=== PATIENT | female | born 1970 | race Caucasian/White ===

== ENCOUNTER 2020-01-05 08:42 | Outpatient (CLI) | payer MEDICARE, MEDICAID, SELFPAY ==
--- NOTE | ~2020-01-05 | MM_ITS ---
EXAMINATION: MM screening mammo BI HISTORY: Screening mammogram TECHNIQUE: Full field digital craniocaudal and mediolateral oblique views of both breasts were obtain ed. CAD analysis was submitted and interpreted. COMPARISON: 07/17/2018, 07/14/2017, 06/12/2016 BREAST PARENCHYMAL COMPOSITION: There are scattered areas of fibroglandular density. FINDINGS: Right breast: There is no evidence of suspicious mass, calcification, or architectural distortion to suggest malignancy. There has been no suspicious interval change. Left breast: A 7 mm mass is present in the subareolar aspect of the breast. Scattered benign-appearin g calcifications are present. IMPRESSION: 1. Left breast mass. 2. Additional mammographic views and possible breast ultrasound are recommended. BI-RADS Category 0: Incomplete: Needs additional imaging evaluation. Reviewed, dictated and finalized at location A. 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 Left breast mass. 2. Additional mammographic views and possible breast ultrasound are recommended . BI-RADS Category 0: Incomplete: Needs additional imaging evaluation.
== END 2020-01-05 08:43 | disposition home or self-care (01) ==
LOC: ANHIMG 08:46
PROVIDERS: PCP Internal Medicine; Visit Provider Internal Medicine
DX: Z12.31 Encounter for screening mammogram for malignant neoplasm of breast (principal); R92.8 Other abnormal and inconclusive findings on diagnostic imaging of breast
CPT/HCPCS: 77067

== ENCOUNTER 2020-01-28 12:56 | Outpatient (CLI) | payer MEDICARE, MEDICAID, SELFPAY ==
--- NOTE | ~2020-01-28 | MMUS_ITS ---
EXAMINATION: MM diagnostic mammo unilat LT, US breast LT limited HISTORY: 7 mm mass reported in inferior subareolar left breast on 01/05/2020 screening mammogram TECHNIQUE: Additional 3-D tomosynthesis images of the left breast were performed and synthetic 2-D im ages were generated. CAD analysis was submitted and interpreted. High resolution targeted left subare olar breast ultrasound was performed. COMPARISON: 01/05/2020, 07/17/2018, 07/14/2017 bilateral digital screening mammogram examinations FINDINGS: MAMMOGRAPHIC FINDINGS: An approximately 6 mm circumscribed opacity is noted in the inferior subareolar area of the left [address]. ULTRASOUND: There is an approximately 4.3 x 2.6 x 3.4 mm mildly complicated cyst in the 6:00 subareolar area. No suspicious shadowing or internal vascularity is noted. IMPRESSION: 1. Probably benign cyst in the 6:00 subareolar area of left breast 2. Targeted follow-up left subareolar 6:00 breast ultrasound examination is recommended 6 month. BI-RADS category 3, probably benign findings. Reviewed, dictated and finalized at location A. [employer] IMPRESSION: 1. Probably benign cyst in the 6:00 subareolar area of left breast 2. Targeted follow-up left subareolar 6:00 breast ultrasound examination is rec ommended 6 month. BI-RADS category 3, probably benign findings.
== END 2020-01-28 12:57 | disposition home or self-care (01) ==
LOC: ANHIMG 12:58
PROVIDERS: PCP Internal Medicine; Visit Provider Internal Medicine
DX: N60.02 Solitary cyst of left breast (principal)
CPT/HCPCS: 76642; 77065

== ENCOUNTER 2020-08-18 15:21 | Outpatient (CLI) | payer MEDICARE, MEDICAID, SELFPAY ==
--- NOTE | ~2020-08-18 | US_ITS ---
US breast LT limited DATE: 08/18/2020 15:50 INDICATION: Six-month follow-up of 6:00 subareolar right breast lesion TECHNIQUE: High-resolution real-time and color flow imaging targeted to 6:00 subareolar area COMPARISON: 01/28/2020 limited left breast ultrasound and diagnostic left mammogram FINDINGS: There is an irregular mildly serrated heterogeneous complex mass at 6:00 subareolar area me asuring up to 4.2 x 5.6 x 6.3 mm, increased compared to 4.3 x 2.6 x 3.4 mm dimension on 01/2020. Giv en the irregular margins and the increased size since 02/27/2019, ultrasound-guided biopsy is recommend ed. IMPRESSION: BI-RADS Category 4: Suspicious abnormality; biopsy should be considered Recommendation: Ultrasound-guided biopsy of left breast subareolar 6:[address] Bedoya telephoned the report and ultrasound guided biopsy recommendation to ROSANGELA Puente at [phone] on August 18, 2020 at 1557 hours. Reviewed, dictated and finalized at Location A. Reviewed, dictated and finalized at location A. IMPRESSION: BI-RADS Category 4: Suspicious abnormality; biopsy should be consid ered Recommendation: Ultrasound-guided biopsy of left breast subareolar 6:[address] Bedoya telephoned the report and ultrasound guided biopsy recommendation to Jacqueline Puente at [phone] on August 18, 2020 at 1557 hours.
== END 2020-08-18 15:22 | disposition home or self-care (01) ==
PROVIDERS: PCP Internal Medicine; Visit Provider Internal Medicine
DX: R92.8 Other abnormal and inconclusive findings on diagnostic imaging of breast (principal)
CPT/HCPCS: 76642

== ENCOUNTER 2020-08-29 10:04 | Outpatient (CLI) | payer MEDICARE, MEDICAID, SELFPAY ==
--- NOTE | ~2020-08-29 | MMUS_ITS ---
EXAMINATION: US breast biopsy LT w image, MM post biopsy invasive LT DATE: 08/29/2020 11:46 (accession [id number]), 08/29/2020 11:47 (accession [id number]) INDICATION: Indeterminate subareolar mass at the 6:00 location of the left breast Ultrasound-guided c ore biopsy is requested to evaluate for malignancy. TECHNIQUE AND FINDINGS: The risks and potential benefits of the procedure were discussed with the patient including bleeding, infection, and nondiagnostic specimen. A time out was performed. The skin of the left breast was pre pared and draped in usual sterile fashion. 1% lidocaine was used for superficial anesthesia. 1% lidoc randy with epinephrine was used for deep anesthesia. A vacuum-assisted biopsy gun needle was advanced through to the outer edge of the region of interest from a lateral approach utilizing sonographic guidance. A total of three tissue core samples were obt ained through the lesion. A tissue marker clip was then placed at the biopsy site. Hemostasis was ach ieved. A sterile bandage was applied. The patient tolerated procedure well and there was no evidence of immediate complication. The patient was given verbal instructions to return to the Emergency Department in the event of severe breast pa in or rapid breast enlargement. A two view left breast mammogram was obtained to document tissue maile er clip placement. IMPRESSION: 1. Successful ultrasound-guided vacuum-assisted biopsy of left breast mass with tissue marker placeme nt. Reviewed, dictated and finalized at location A. IMPRESSION: 1. Successful ultrasound-guided vacuum-assisted biopsy of left breast mass with tissue marker placement.
== END 2020-08-29 10:05 | disposition home or self-care (01) ==
PROVIDERS: PCP Internal Medicine
DX: N63.20 Unspecified lump in the left breast, unspecified quadrant (principal); R92.8 Other abnormal and inconclusive findings on diagnostic imaging of breast
CPT/HCPCS: 19083; 88305; A4648

== ENCOUNTER 2021-06-07 09:27 | Outpatient (CLI) | payer MEDICARE, MEDICAID, SELFPAY ==
--- NOTE | ~2021-06-07 | XR_ITS ---
EXAMINATION: XR shunt series INDICATION: Possible shunt catheter breakdown TECHNIQUE: AP and lateral views of the skull and AP views of the chest and abdomen are obtained. COMPARISON: None available FINDINGS: There appears to be a retained shunt catheter entering anteriorly through the right frontal lobe. A second shunt catheter enters posteriorly through the right parietal bone and continues throu gh the right neck anteriorly in the right chest wall. The catheter tubing appears to be discontinuous in the right lower chest wall. There also appears to be a short segment of retained shunt catheter t ubing in the medial aspect of the right anterior chest wall. The distal thoracic shunt catheter tubin g and tubing within the abdomen appears to be contiguous and intact. The lungs are free of acute opac ities. The cardiomediastinal silhouette is normal. There is no pleural effusion or pneumothorax. The bowel gas pattern is normal. IMPRESSION: 1. Apparent discontinuity of the shunt catheter tubing in the right lower thorax Reviewed, dictated and finalized at location A. IMPRESSION: 1. Apparent discontinuity of the shunt catheter tubing in the right lower thora x
== END 2021-06-07 09:28 | disposition home or self-care (01) ==
LOC: ANHIMG 09:42
PROVIDERS: PCP Internal Medicine; Visit Provider Psychiatry & Neurology Neurology
DX: T85.618A Breakdown (mechanical) of other specified internal prosthetic devices, implants and grafts, initial encounter (principal)
CPT/HCPCS: 70250; 71045; 74018

== ENCOUNTER 2021-06-22 13:24 | Outpatient (CLI) | payer MEDICARE, MEDICAID, SELFPAY ==
--- NOTE | ~2021-06-22 | CT_ITS ---
EXAMINATION: CT thoracic spine wo con DATE: 06/22/2021 13:47 INDICATION: Dorsalgia. TECHNIQUE: Computed tomography (CT) of the thoracic spine was performed without intravenous contrast. Automated exposure control and iterative reconstruction technique were employed. The dose-length pro duct was 486.10 mGy-cm. COMPARISON: None FINDINGS: There is a moderate-sized sliding hiatal hernia. There is 11 degrees levoscoliosis of thora cic spine. Vertebral body heights are normal. There are sclerotic lesions in T2, T4, and T10 vertebra l bodies. There is mildly decreased disc height from T2-T3 through T8-T9. 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 On the right, there is mild neural foraminal stenosis at T5-T6 and T6-T7. No central canal stenosis. IMPRESSION: 1. Sclerotic lesions in T2, T4, and T10 vertebral bodies, which may be benign bone islands, hemangiom as, or metastatic disease. Bone scan is recommended. 2. Mild thoracic spondylosis. 3. Thoracic levoscoliosis. 4. Moderate-sized sliding hiatal hernia. Reviewed, dictated and finalized at location B. IMPRESSION: 1. Sclerotic lesions in T2, T4, and T10 vertebral bodies, which may be benign b one islands, hemangiomas, or metastatic disease. Bone scan is recommended. 2. Mild thoracic spondylosis. 3. Thoracic levoscoliosis. 4. Moderate-sized sliding hiatal hernia.
== END 2021-06-22 13:25 | disposition home or self-care (01) ==
PROVIDERS: PCP Internal Medicine; Visit Provider Internal Medicine
DX: R92.8 Other abnormal and inconclusive findings on diagnostic imaging of breast (principal); M47.894 Other spondylosis, thoracic region; K44.9 Diaphragmatic hernia without obstruction or gangrene
CPT/HCPCS: 72128

== ENCOUNTER 2021-06-28 12:10 | Outpatient (CLI) | payer MEDICARE, MEDICAID, SELFPAY ==
--- NOTE | ~2021-06-28 | MMUS_ITS ---
EXAMINATION: MM diagnostic maddie RT w ava, US breast RT complete HISTORY: Reported abnormality of right breast on CT examination performed at outside institution TECHNIQUE: Full field and spot ML, MLO and CC and rotated lateral CC 3-D tomosynthesis images of the right breast were performed and synthetic 2-D images were generated. CAD analysis was submitted and i nterpreted. High resolution complete right breast ultrasound including all 4 quadrants and subareolar area was performed. COMPARISON: 01/05/2020, 07/13/2018, 07/14/2017 bilateral screening mammogram examinations BREAST PARENCHYMAL COMPOSITION: There are scattered areas of fibroglandular density. FINDINGS: MAMMOGRAPHIC FINDINGS: There are 2 biopsy markers on the right. History of prior benign right breast biopsies. Scattered benign calcifications. No suspicious new or enlarging mass is detected. No interval architectural distortion, skin thickenin g or retraction. ULTRASOUND: At 10:00 6 cm from the nipple there is a parallel circumscribed septated cyst measuring 6.3 x 2.6 x 3 .2 mm. There is no suspicious shadowing. No suspicious mass or shadowing is noted elsewhere in the right breast. IMPRESSION: 1. Benign findings 2. Routine mammographic screening is recommended BI-RADS Category 2: Benign Reviewed, dictated and finalized at location A. IMPRESSION: 1. Benign findings 2. Routine mammographic screening is recommended BI-RADS Category 2: Benign
== END 2021-06-28 12:11 | disposition home or self-care (01) ==
PROVIDERS: PCP Internal Medicine; Visit Provider Internal Medicine
DX: R92.8 Other abnormal and inconclusive findings on diagnostic imaging of breast (principal); M54.9 Dorsalgia, unspecified
CPT/HCPCS: 76641; 77061; 77065; G0279

== ENCOUNTER 2021-07-05 08:53 | Outpatient (CLI) | payer MEDICARE, MEDICAID, SELFPAY ==
--- NOTE | ~2021-07-05 | NM_ITS ---
EXAMINATION: NM bone scan whole body DATE: 07/05/2021 13:19 INDICATION: Abnormal findings on diagnostic CT imaging TECHNIQUE: 86.9 mCi Tc-99m HDP was administered intravenously. Delayed whole-body scintigrams were o btained. COMPARISON: Thoracic spine CT dated 06/22/2021 FINDINGS: Likely degenerative joint centered uptake at the bilateral elbows, knees, feet and ankles. Increased uptake at the left and right sides of the lower lumbar spine likely related to either facet osteoarth ritis with bilateral pars interarticularis defects. No abnormal uptake associated with the previous n oted sclerotic lesions at T2, T4 and T10, most likely bone islands. No other suspicious bone lesions identified. IMPRESSION: 1. No suspicious bone lesions identified. Specifically no uptake at the previously noted sclerotic le sions in the thoracic spine which most likely represent bone islands. Reviewed, dictated and finalized at location A. IMPRESSION: 1. No suspicious bone lesions identified. Specifically no uptake at the previou sly noted sclerotic lesions in the thoracic spine which most likely represent b one islands.
== END 2021-07-05 08:54 | disposition home or self-care (01) ==
PROVIDERS: PCP Internal Medicine; Visit Provider Internal Medicine
DX: R93.89 Abnormal findings on diagnostic imaging of other specified body structures (principal)
CPT/HCPCS: 78306; A9561

== ENCOUNTER 2021-07-12 07:50 | Outpatient (CLI) | payer MEDICARE, MEDICAID, SELFPAY ==
--- NOTE | ~2021-07-12 | MM_ITS ---
EXAMINATION: MM screening mammo unilat LT HISTORY: Screening left mammogram, recent negative right diagnostic mammogram TECHNIQUE: Craniocaudal and mediolateral oblique 3-D tomosynthesis images were obtained and synthetic 2-D images were generated. CAD analysis was submitted and interpreted. COMPARISON: 01/28/2020, 01/05/2020, 07/17/2018, 07/14/2017 BREAST PARENCHYMAL COMPOSITION: There are scattered areas of fibroglandular density. FINDINGS: Scattered benign-appearing calcifications are present. There is no suspicious mass, calcifi cation, or architectural distortion to suggest malignancy. There has been no suspicious interval goldman ge. IMPRESSION: 1. No mammographic evidence of malignancy. 2. Recommend routine screening mammography in one year. BI-RADS Category 2: Benign finding(s). Reviewed, dictated and finalized at location A.
== END 2021-07-12 07:51 | disposition home or self-care (01) ==
PROVIDERS: PCP Internal Medicine; Visit Provider Internal Medicine
DX: Z12.31 Encounter for screening mammogram for malignant neoplasm of breast (principal)
CPT/HCPCS: 77067

== ENCOUNTER 2022-10-08 08:25 | Outpatient (CLI) | payer MEDICARE, MEDICAID, SELFPAY ==
--- NOTE | ~2022-10-08 | MM_ITS ---
EXAMINATION: MM screening maddie BI w ava HISTORY: Screening TECHNIQUE: Craniocaudal and mediolateral oblique 3-D tomosynthesis images were obtained and synthetic 2-D images were generated. CAD analysis was submitted and interpreted. COMPARISON: Comparison to multiple prior studies sequentially, with oldest reviewed study dated 07/17. BREAST PARENCHYMAL COMPOSITION: There are scattered areas of fibroglandular density. FINDINGS: There is a new mass in the upper inner quadrant of the left breast, middle third. There are coarse benign bilateral breast calcifications. Right breast is stable without evidence for malignanc y. IMPRESSION: 1. New left breast mass, upper inner quadrant. 2. Additional mammographic views and possible breast ultrasound are recommended. BI-RADS Category 0: Incomplete: Needs additional imaging evaluation. Reviewed, dictated and finalized at location A. IMPRESSION: 1. New left breast mass, upper inner quadrant. 2. Additional mammographic views and possible breast ultrasound are recommended . BI-RADS Category 0: Incomplete: Needs additional imaging evaluation.
== END 2022-10-08 08:26 | disposition home or self-care (01) ==
PROVIDERS: PCP Internal Medicine; Visit Provider Internal Medicine
DX: Z12.31 Encounter for screening mammogram for malignant neoplasm of breast (principal); R92.8 Other abnormal and inconclusive findings on diagnostic imaging of breast
CPT/HCPCS: 77063; 77067

== ENCOUNTER 2022-11-06 11:18 | Outpatient (CLI) | payer MEDICARE, MEDICAID, SELFPAY ==
--- NOTE | ~2022-11-06 | MMUS_ITS ---
EXAMINATION: MM diagnostic maddie LT w ava, US breast LT limited HISTORY: New left breast mass reported in upper inner quadrant on 10/08/2022 screening mammogram TECHNIQUE: Additional 3-D tomosynthesis images of the left breast were performed and synthetic 2-D im ages were generated. CAD analysis was submitted and interpreted. High resolution upper inner quadrant and lower inner quadrant left breast ultrasound was performed. COMPARISON: 10/08/2022 bilateral screening mammogram FINDINGS: MAMMOGRAPHIC FINDINGS: There is an approximately 5 x 7.5 mm circumscribed opacity in the upper inner quadrant. There is an approximately 3-4 mm apparent partially circumscribed mass in the lower inner quadrant. ULTRASOUND: No suspicious mass or shadowing is detected. 6:00 subareolar area at site of prior ultrasound-guided breast biopsy of 08/29/2020: There is diminishe d size of a relatively sonolucent area compared to the prebiopsy 08/18/2020 examination. The biopsy re sult was benign 8:00 3 cm from nipple: Parallel circumscribed hypoechoic 3.3 x 2.8 x 3.8 mm lesion without internal vascularity or posterior shadowing, likely benign 10:00 2 cm from nipple: Multi septated 7 x 6 x 7.6 mm cyst, without internal vascularity, without pos terior shadowing, benign in appearance IMPRESSION: 1. Benign findings 2. Routine annual mammographic screening is recommended BI-RADS Category 2: Benign finding(s). Reviewed, dictated and finalized at location A. IMPRESSION: 1. Benign findings 2. Routine annual mammographic screening is recommended BI-RADS Category 2: Benign finding(s).
== END 2022-11-06 11:19 | disposition home or self-care (01) ==
LOC: ANHIMG 11:20
PROVIDERS: PCP Internal Medicine; Visit Provider Internal Medicine
DX: R92.8 Other abnormal and inconclusive findings on diagnostic imaging of breast (principal)
CPT/HCPCS: 76642; 77061; 77065; G0279

== ENCOUNTER 2023-08-25 10:25 | Outpatient (CLI) | payer MEDICARE, MEDICAID, SELFPAY ==
[2023-08-25 11:23] LABS: Basophils Percent Auto 0.8 % (0.2-1.2); Eosinophils Percent Auto 0.4 % (0-4.4); Hematocrit 44.4 % (37.0-47.0); Hemoglobin 15.1 g/dL (12.0-15.0); Immature Granulocyte Absolute 0.02 K/mm3 (0.00-0.031); Immature Granulocyte Percent A 0.4 % (0-0.5); Lymphocytes Absolute Auto 0.87 K/mm3 (0.9-3.2); Mean Corpuscular Hemoglobin 30.2 pg (26-34); Mean Corpuscular Volume 88.8 fl (80-100); Mean Platelet Volume 9.3 fl (7.4-10.4); Monocytes Absolute Auto 0.5 K/mm3 (0.1-0.6); Monocytes Percent Auto 9.8 % (2.6-8.5); Neutrophils Absolute Auto 3.4 K/mm3 (1.3-6.7); Neutrophils Percent Auto 70.6 % (45.5-73.1); Platelet Count Result 310 k/mm3 (150-375); White Blood Count 4.8 K/mm3 (4.5-10.0)
[2023-08-25 11:36] LABS: Alanine Aminotransferase 13 U/L (6-35); Albumin Level 4.8 g/dL (3.5-5.1); Alkaline Phosphatase 135 U/L (38-126); Anion Gap 11 mmol/L (4-12); Aspartate Amino Transferase 19 U/L (14-36); Bilirubin,Total 0.5 mg/dL (0.2-1.3); Blood Urea Nitrogen 9 mg/dL (7-17); Carbon Dioxide 26 mmol/L (22-30); Chloride 99 mmol/L (98-107); Estimated Glomerular Filt Rate > 60; Glucose 107 mg/dL (65-110); Potassium 3.8 mmol/L (3.4-5.0); Sodium 136 mmol/L (137-145)
[2023-08-28 16:53] LABS: Carbamazepine Tegretol 8.9 mcg/mL (4.0-12.0)
== END 2023-08-25 10:26 | disposition home or self-care (01) ==
PROVIDERS: PCP Internal Medicine; Visit Provider Student in an Organized Health Care Education/Training Program
DX: R11.10 Vomiting, unspecified (principal); G40.909 Epilepsy, unspecified, not intractable, without status epilepticus; G91.9 Hydrocephalus, unspecified
CPT/HCPCS: 36415; 80053; 80156; 85025

== ENCOUNTER 2023-09-05 15:02 | Outpatient (CLI) | payer MEDICARE, MEDICAID, SELFPAY ==
--- NOTE | ~2023-09-05 | CT_ITS ---
EXAMINATION: CT brain wo con DATE: 09/05/2023 15:24 INDICATION: Hydrocephalus. Epilepsy. TECHNIQUE: Computed tomography (CT) of the head was performed without intravenous contrast. The mA wa s adjusted according to patient size. Iterative reconstruction technique was employed. The dose-lengt h product was 681.00 mGy-cm. COMPARISON: None FINDINGS: There is no intracranial hemorrhage, acute infarction, or abnormal intracranial mass lesion . There are widespread dural calcifications. The ventricles are small. There is a right frontal ventr iculostomy catheter with tip at the foramen of Monro. There is a right parietal ventriculostomy sha ter with tip in body of left lateral ventricle. The orbits are normal. The paranasal sinuses are jayme r. The mastoid air cells are normal. IMPRESSION: 1. Small ventricles with 2 shunts. Reviewed, dictated and finalized at location E.
== END 2023-09-05 15:03 | disposition home or self-care (01) ==
LOC: ANHIMG 15:08
PROVIDERS: PCP Internal Medicine; Visit Provider Student in an Organized Health Care Education/Training Program
DX: G91.9 Hydrocephalus, unspecified (principal); G40.909 Epilepsy, unspecified, not intractable, without status epilepticus
CPT/HCPCS: 70450

== ENCOUNTER 2023-12-08 14:47 | Outpatient (CLI) | payer MEDICARE, MEDICAID, SELFPAY ==
--- NOTE | ~2023-12-08 | MM_ITS ---
EXAMINATION: MM screening [facility] BI w ava HISTORY: Screening TECHNIQUE: Craniocaudal and mediolateral oblique 3-D tomosynthesis images were obtained and synthetic 2-D images were generated. CAD analysis was submitted and interpreted. COMPARISON: Comparison to multiple prior studies sequentially, with oldest reviewed study dated 06/2021. BREAST PARENCHYMAL COMPOSITION: Not dense: There are scattered areas of fibroglandular density. FINDINGS: Stable low-density mass lower inner quadrant of the left breast previously characterized as a cyst. There are are stable and lateral breast calcifications which appear benign. There is no evid ence of suspicious mass, calcification, or architectural distortion to suggest malignancy in either b reast. There has been no suspicious interval change. IMPRESSION: 1. No mammographic evidence of malignancy. 2. Recommend routine screening mammography in one year. BI-RADS Category 2: Benign finding(s). Reviewed, dictated and finalized at location B.
== END 2023-12-08 14:48 | disposition home or self-care (01) ==
LOC: ANHIMG 14:48
PROVIDERS: PCP Internal Medicine; Visit Provider Internal Medicine
DX: Z12.31 Encounter for screening mammogram for malignant neoplasm of breast (principal)
CPT/HCPCS: 77063; 77067